=== PATIENT | female | born 1975 | race Caucasian/White ===

== ENCOUNTER 2018-08-22 16:40 | Outpatient (CLI) | payer OTHER, SELFPAY ==
[2018-08-22 23:31] LABS: TSH (W/Ref FT4) 1.43 uIU/mL (0.358-3.74)
[2018-08-24 09:20] LABS: Hepatitis C Ab w Rflx HCV PCR Negative (NEGAT)
[2018-08-24 10:13] LABS: HIV-1/2 Ag & Ab Screen Negative (NEGAT)
[2018-08-24 10:30] LABS: Prolactin 8.8 ng/ml
== END 2018-08-22 17:00 ==
PROVIDERS: PCP Family Medicine; Visit Provider Obstetrics & Gynecology
DX: N94.10 Unspecified dyspareunia (principal); Z11.3 Encounter for screening for infections with a predominantly sexual mode of transmission; Z11.4 Encounter for screening for human immunodeficiency virus [HIV]; Z11.59 Encounter for screening for other viral diseases; N64.52 Nipple discharge
CPT/HCPCS: 36415; 86803; 87389; 84146; 84443

== ENCOUNTER 2018-08-22 16:46 | Outpatient (REF) | payer OTHER, SELFPAY ==
--- NOTE | 2018-08-22 16:25 | PAPFT_PTH ---
PATIENT: Alanna White LOC: [facility] U#:[id number] AGE/SX: 42/F ROOM: RE08/22/[address]: Ivan Doss MD : 1975 BED: DIS: 08/22/2018 SPEC #: [id number] RECD: 08/22/18 18:06 STATUS: YAMILA REKain #: [id number] MEHUL: 08/22/18 16:[address]: Ivan Doss DEPT: [facility] Cytology RECD BY: Kate Carver ENTERED: 08/22/18 18:06 SP TYPE: PAPFT OTHR DR: Betsy Thayer V Tissues: 1 - CX/ENDOCX FOR PAP SMEARS Procedures: PAP THIN PREP/UVM Screening Comments: [id number] (UNSATISFACTORY FOR EVALUATON)
[2018-08-24 14:48] LABS: Chlamydia Result Negative; GC Result Negative; Specimen Description CERVIX
== END 2018-08-22 17:06 ==
LOC: LBN 16:46
PROVIDERS: PCP Family Medicine; Visit Provider Obstetrics & Gynecology
DX: Z12.4 Encounter for screening for malignant neoplasm of cervix (principal); Z11.51 Encounter for screening for human papillomavirus (HPV); Z11.3 Encounter for screening for infections with a predominantly sexual mode of transmission; N94.19 Other specified dyspareunia
CPT/HCPCS: 87491; 87591; 88142; 87624

== ENCOUNTER 2018-12-18 13:07 | Outpatient (REF) | payer OTHER, SELFPAY ==
[2018-12-18 21:56] LABS: Abs Immature Grans 0.01 k/cumm (0.0-0.09); Absolute Basophil Count 0.03 k/cumm (0.0-0.2); Absolute Eosinophil Count 0.09 k/cumm (0.0-0.7); Absolute Lymphocyte Count 1.07 k/cumm (1.2-3.4); Absolute Monocyte Count 0.51 k/cumm (0.11-0.7); Absolute Neutrophil Count 3.92 k/cumm (1.2-6.7); Basophils % 0.5; Eosinophils % 1.6; HCT 41.2 % (36.0-46.0); HGB 14.1 g/dL (12.0-15.5); Immature Grans % 0.2; Mean Corp. HGB Concentration 34.2 g/dL (32.0-36.0); Mean Corpuscular Volume 90.5 fL (80-95); Mean Platelet Volume 9.5 fL (8.0-11.0); Monocytes % 9.1; Neutrophils % 69.6; Platelet Count 276 x1000/uL (130-400); RBC 4.55 m/cumm (4.00-5.20); RBC Distribution Width 13.2 % (11.7-14.6); White Blood Cell Count 5.63 k/cumm (4.4-10.8)
[2018-12-18 22:20] LABS: ALT 20 U/L (12-78); AST 13 U/L (15-37); Albumin 3.5 g/dL (3.4-5.0); Alkaline Phosphatase 86 U/L (46-116); Anion Gap 9.4 mmol/L (3-11); BUN 10 mg/dL (7-18); Bilirubin, Total 0.6 mg/dL (0.2-1.0); CO2 26.6 mmol/L (21.0-32.0); CREATININE 0.68 mg/dL (0.55-1.02); Calcium 8.6 mg/dL (8.5-10.1); Chloride 105 mmol/L (98-107); Cholesterol 162 mg/dL (50-200); Glucose 84 mg/dL (70-100); HDL Cholesterol 68 mg/dL (40-60); LDL CHOLESTEROL 83 mg/dL (<100); Potassium 4.3 mmol/L (3.5-5.1); Sodium 141 mmol/L (136-145); TSH (W/Ref FT4) 1.83 uIU/mL (0.358-3.74); Total Protein 6.9 g/dL (6.4-8.2); Triglyceride 56 mg/dL (30-150)
== END 2018-12-18 13:27 ==
LOC: NCHCN 13:07
PROVIDERS: PCP Family Medicine; Visit Provider Physician Assistant Medical
DX: R07.9 Chest pain, unspecified (principal); R00.2 Palpitations
CPT/HCPCS: 80053; 80061; 83721; 84443; 85025

== ENCOUNTER 2019-12-03 15:29 | Outpatient (REF) | payer OTHER, SELFPAY ==
[2019-12-05 09:48] LABS: Hepatitis C Ab w Rflx HCV PCR Negative (Negative)
[2019-12-05 09:49] LABS: HIV-1/2 Ag & Ab Screen Negative (Negative)
[2019-12-05 10:30] LABS: Syphilis Serology (RPR) Negative (Negative)
[2019-12-05 13:36] LABS: GC Result Negative (Negative)
[2019-12-05 15:47] LABS: Chlamydia Result Positive (Negative)
== END 2019-12-03 15:49 ==
LOC: NCHCN 15:29
PROVIDERS: PCP Family Medicine; Visit Provider Physician Assistant Medical
DX: N76.0 Acute vaginitis (principal); Z11.59 Encounter for screening for other viral diseases; Z11.4 Encounter for screening for human immunodeficiency virus [HIV]
CPT/HCPCS: 86803; 87389; 87491; 87591; 86592; 87480; 87510; 87660

== ENCOUNTER 2020-08-20 19:09 | Outpatient (REF) | payer OTHER, SELFPAY ==
[2020-08-20 20:50] LABS: Abs Immature Grans 0.01 10^3/uL (0.0-0.06); Absolute Basophil Count 0.03 10^3/uL (0.0-0.2); Absolute Eosinophil Count 0.07 10^3/uL (0.0-0.7); Absolute Lymphocyte Count 1.22 10^3/uL (1.2-3.4); Absolute Monocyte Count 0.47 10^3/uL (0.1-0.8); Absolute Neutrophil Count 3.68 10^3/uL (1.2-6.7); Basophils % 0.5; Eosinophils % 1.3; HCT 43.2 % (36.0-46.0); HGB 14.2 g/dL (11.2-15.7); Immature Grans % 0.2; Lymphocytes % 22.3; MCH 28.9 pg (27.0-33.0); MCHC 32.9 % (32.0-36.0); MPV 9.3 fL (8.0-11.0); Monocytes % 8.6; Neutrophils % 67.1; Nucleated RBC 0 %; Platelet Count 304 10^3/uL (130-400); RBC 4.91 10^6/uL (3.93-5.22); RDW 13.2 % (11.7-14.6); RDW-SD 42.6 fL; WBC 5.48 10^3/uL (4.4-10.8)
[2020-08-20 21:10] LABS: Iron 39 ug/dL (50-170); Total Iron Binding Capacity 377 ug/dL (250-450); Transferrin Sat 10 % (15-50)
[2020-08-20 21:37] LABS: ALT 25 U/L (14-59); AST 15 U/L (15-37); Albumin 3.6 g/dL (3.4-5.0); Alkaline Phosphatase 105 U/L (46-116); Anion Gap 8.6 mmol/L (3-11); BUN 18 mg/dL (7-18); Bilirubin, Total 0.3 mg/dL (0.2-1.0); CO2 25.4 mmol/L (21.0-32.0); CREATININE 0.67 mg/dL (0.55-1.02); Calcium 8.2 mg/dL (8.5-10.1); Chloride 104 mmol/L (98-107); Ferritin 9 ng/mL (8-252); Folate 16.6 ng/mL (8.6-20.0); Glucose 80 mg/dL (74-106); Potassium 4.3 mmol/L (3.5-5.1); Sodium 138 mmol/L (136-145); Vitamin B12 284 pg/mL (193-986)
[2020-08-21 05:05] LABS: Vitamin D 25 Total 49.9 ng/ml (30-100)
[2020-08-22 10:52] LABS: Parathyroid Hormone,Intact 63 pg/mL (19-88)
[2020-08-26 07:50] LABS: Thiamine (Vitamin B1), WB 99 nmol/L (70-180)
== END 2020-08-20 19:29 ==
LOC: NCHCN 19:09
PROVIDERS: PCP Family Medicine; Visit Provider Physician Assistant Medical
DX: R10.11 Right upper quadrant pain (principal); R30.0 Dysuria; K21.9 Gastro-esophageal reflux disease without esophagitis; Z98.84 Bariatric surgery status
CPT/HCPCS: 80053; 82306; 82607; 82728; 82746; 83540; 83550; 83970; 84425; 85025

== ENCOUNTER 2021-03-19 17:49 | Outpatient (REF) | payer OTHER, SELFPAY ==
[2021-03-23 15:05] LABS: Chlamydia Result Negative (Negative); GC Result Negative (Negative)
== END 2021-03-19 17:50 | disposition home or self-care (01) ==
LOC: NCHCN 17:49
PROVIDERS: PCP Family Medicine; Visit Provider Physician Assistant Medical
DX: N89.8 Other specified noninflammatory disorders of vagina (principal); R82.998 Other abnormal findings in urine; Z11.3 Encounter for screening for infections with a predominantly sexual mode of transmission
CPT/HCPCS: 87491; 87591; 87086; 87480; 87510; 87660

== ENCOUNTER 2021-08-06 18:11 | Outpatient (REF) | payer OTHER, SELFPAY ==
[2021-08-08 12:56] LABS: COVID-19 RT-PCR UVMMC Result Positive (Negative)
== END 2021-08-06 18:12 | disposition home or self-care (01) ==
LOC: LBN 18:11
PROVIDERS: PCP Family Medicine; Visit Provider Physician Assistant Medical
DX: Z20.822 Contact with and (suspected) exposure to COVID-19 (principal); J06.9 Acute upper respiratory infection, unspecified
CPT/HCPCS: U0003

== ENCOUNTER 2021-08-11 03:16 | Outpatient (CLI) | payer OTHER, SELFPAY ==
[2021-08-11 07:25] VITALS: BP 100/67; PULSE 72; RESP 16; TEMP 36.8; O2SAT 98
[2021-08-11 07:36] VITALS: BP 100/67; PULSE 72; RESP 16; TEMP 36.8; O2SAT 98
[2021-08-11] MEDS: Normal Saline 500 ML 30 ML IV (08:00)
[2021-08-11 08:05] VITALS: BP 91/57; PULSE 70; TEMP 36.9; O2SAT 98
[2021-08-11 08:35] VITALS: BP 105/71; PULSE 65; RESP 16; TEMP 36.7; O2SAT 98
[2021-08-11] MEDS: Normal Saline Flush 10 ML SYR IVP (09:04)
[2021-08-11 09:07] VITALS: BP 103/70; PULSE 64; RESP 19; TEMP 36.7; O2SAT 99
[2021-08-11 09:35] VITALS: BP 97/64; PULSE 68; RESP 18; TEMP 36.7; O2SAT 99
== END 2021-08-11 03:17 | disposition home or self-care (01) ==
PROVIDERS: PCP Family Medicine; Visit Provider Family Medicine
DX: U07.1 COVID-19 (principal)
CPT/HCPCS: 96365

== ENCOUNTER 2022-09-13 15:40 | Outpatient (REF) | payer SELFPAY ==
[2022-09-15 11:28] LABS: COVID-19 RT-PCR UVMMC Result Negative (Negative)
== END 2022-09-13 15:41 | disposition home or self-care (01) ==
LOC: NCHCN 15:40
PROVIDERS: PCP Family Medicine; Visit Provider Physician Assistant Medical
DX: J02.9 Acute pharyngitis, unspecified (principal); Z20.822 Contact with and (suspected) exposure to COVID-19
CPT/HCPCS: U0003; 87081

== ENCOUNTER 2022-12-10 18:09 | Outpatient (REF) | payer OTHER, SELFPAY ==
[2022-12-12 12:21] LABS: COVID-19 RT-PCR UVMMC Result Negative (Negative)
== END 2022-12-10 18:10 | disposition home or self-care (01) ==
LOC: LBN 18:09
PROVIDERS: PCP Family Medicine; Visit Provider Physician Assistant Medical
DX: Z20.822 Contact with and (suspected) exposure to COVID-19 (principal); J02.9 Acute pharyngitis, unspecified
CPT/HCPCS: U0003; 87081

== ENCOUNTER 2023-03-04 15:08 | Outpatient (REF) | payer OTHER, SELFPAY ==
[2023-03-04 19:12] LABS: HCT 38.5 % (36.0-46.0); HGB 12.9 g/dL (11.2-15.7); MCH 28.8 pg (27.0-33.0); MCHC 33.5 % (32.0-36.0); MCV 86 fL (80-95); Platelet Count 317 10^3/uL (130-400); RBC 4.48 10^6/uL (3.93-5.22); RDW 13.6 % (11.7-14.6); RDW-SD 42.4 fL; WBC 6.72 10^3/uL (4.4-10.8)
[2023-03-04 19:38] LABS: BUN 15 mg/dL (7-18); CREATININE 0.7 mg/dL (0.55-1.02); Calcium 8.9 mg/dL (8.5-10.1); Chloride 104 mmol/L (98-107); Estimated GFR 107.95 (mL/min/1.73m2); Ferritin 15 ng/mL (8-252); Glucose 72 mg/dL (74-106); Potassium 3.6 mmol/L (3.5-5.1); Sodium 140 mmol/L (136-145)
== END 2023-03-04 15:09 | disposition home or self-care (01) ==
LOC: NCHCN 15:08
PROVIDERS: PCP Family Medicine; Visit Provider Physician Assistant Medical
DX: R25.2 Cramp and spasm (principal); Z86.39 Personal history of other endocrine, nutritional and metabolic disease
CPT/HCPCS: 80048; 85027; 82728; 83735

== ENCOUNTER 2023-03-25 00:33 | Outpatient (CLI) | payer OTHER, SELFPAY ==
--- NOTE | 2023-03-25 | DI.MAMMO_ITS ---
Exam(s) MAMMO SCREENING EXAM: MAMMO SCREENING CLINICAL HISTORY: SCREENING FOR BREAST CANCER Z12.31 TECHNIQUE: Mammograms were interpreted according to the usual protocol including computer analysis w [employer] CAD system, tomosynthesis and C-view imaging. COMPARISON: 2012 FINDINGS: The breasts are composed of scattered fibroglandular densities, Breast Density category B. No suspicious masses or suspicious microcalcifications are seen. No skin thickening or abnormal axillary lymph nodes are seen. There has been significant decrease in breast size and increase in breast density related to signifi cant interval weight loss. IMPRESSION: BI-RADS Category 1, Negative mammogram Yearly screening mammography is recommended. Breast Density - Category B, scattered fibroglandular densities. A negative radiographic report should not delay biopsy if a dominant or clinically suspicious mass is present. Up to ten percent of cancers are not identified on mammography. A negative report may reinforce clinical impression. Adenosis and dense breasts may obscure an underlying neoplasm. False positive reports average 6 to 10%. Patient will receive a letter notifying them of these results.
== END 2023-03-25 00:53 ==
PROVIDERS: PCP Family Medicine; Visit Provider Physician Assistant Medical
DX: Z12.31 Encounter for screening mammogram for malignant neoplasm of breast (principal)
CPT/HCPCS: 77063; 77067

== ENCOUNTER 2023-09-23 10:05 | Day surgery (SDC) | payer OTHER, SELFPAY ==
--- NOTE | 2023-09-22 16:23 | PDOC.DSDIS_ITS ---
Date of service: 09/23/23 Time of Service: 12:19 Discharge Plan Disposition Patient Disposition: Home Condition: Good Discharge Details Reason For Visit: colon scope Attending Provider: Michelle Cobb Primary Care Provider: Betsy Thayer V Home Meds and New Rx's Prescriptions: Continued epinephrine 0.3 MG/0.3 ML auto-injector 0.3 mg IM PRN Patient Comments: 06/03/14- Pt states she has not had to use. multivitamin [Daily Multi-Vitamin] 1 EACH tablet 1 ea PO DAILY fexofenadine [Mona Allergy] 60 MG tablet 60 mg PO BID fluticasone propionate [Flonase Allergy Relief] 9.9 ML spray,suspension 9.9 ml NS PRN ferrous sulfate 325 mg (65 mg iron) tablet,delayed release (DR/EC) 325 mg PO BID omeprazole 10 mg capsule,delayed release(DR/EC) 10 mg PO DAILY potassium chloride 10 mEq tablet extended release 10 meq PO DAILY magnesium 200 mg tablet 200 mg PO DAILY VITAMIN d3 25 mcg 1 tab PO DAILY mecobalamin (vitamin B12) 500 mcg tablet,chewable 500 mcg PO DAILY hydrocortisone 2.5 % cream 1 applic topical BID PRN prednisone 10 mg tablet 10 mg PO DIRECTED Patient Comments: TAKE 4 TABLETS BY MOUTH EVERY DAY X 2 DAYS THEN 3 TABLETS X 2 DAYS THEN 2 TABLETS X 2 DAYS THEN 1 TABLET X 2 DAYS THEN STOP Discontinued bisacodyl [Dulcolax (bisacodyl)] 5 mg tablet,delayed release (DR/EC) 5 mg PO ONCE Qty: 4 0RF Rx Instructions: Take per colonoscopy instructions provided by ordering providers office polyethylene glycol 3350 17 gram/dose powder 17 g PO ONCE Qty: 238 0RF Rx Instructions: Take per colonoscopy instructions provided by ordering providers office Discharge Instructions Additional Instructions: DSU Colonoscopy Post- Op Instructions Instructions for Everyone who is given Anesthesia: For your safety, please do the following for the next twenty-four (24) hours: *Do Not operate a motor vehicle (car, truck, motorcycle, etc.) *Do Not drink alcoholic beverages or use any recreational drugs for the first 24 hours or while taking pain medications. The medications in your body may have a reaction that can be dangerous. *Do Not make any important decisions or sign any important papers. Findings: Diverticula-Ensure you are moving your bowels on a regular basis and you are not straining to go to the bathroom. If you find you having problems with constipation or straining, then it is recommended you start a fiber product such as Metamucil Follow up: Repeat in 10 years time. 1. No lifting over 20 pounds or strenuous activity for the first 24 hours after your procedure. After 24 hours there are no restrictions on your activity but you may feel fatigued for a few days. 2. After you arrive home you may have a light meal and return to your normal diet as you can tolerate it without feeling sick to your stomach. 3. You may have a bloated, gaseous feeling in your belly (abdomen) after a colonoscopy. Passing gas and belching will help. Walking or lying down on your left side with your knees flexed may relieve the discomfort. Call the office at [phone] (Office) or [phone] (Hospital) right away if you notice any of the following: a.Vomiting of blood or ?coffee ground stools?. b.Rectal bleeding 1Tbsp, blood clots or continuous bleeding. c.Severe belly (abdominal) pain. d.A hard distended belly (abdomen) and an inability to pass gas. 4. Please don?t expect to have a normal BM (bowel movement) for 2-3 days after your procedure. 5. If there are questions regarding the findings of your procedure, please contact your doctor 6. If you are unable to contact your doctor with a problem, contact the hospital at [phone]. 7. Continue all your regular medications unless directed otherwise. I understand the above instructions and have no questions. Signature of Patient or Adult Escort Name of Responsible Adult Escort Signature of Nurse Date/Time -Patient was given a handout on diverticular disease Stand Alone Forms: Anesthesia Discharge InstMary Alice, Jessy Anthony (DSU) Activity:: see above Diet:: see above Discharge Orders Discharge Orders: Discharge Order (Routine); Ordered 09/23/23 Ordered By: Michelle Cobb DS: Diagnosis Discharge Diagnosis (1) Morbid obesity: Status: Acute (2) Lactose intolerance: Status: Acute (3) Gastroesophageal reflux disease: Status: Acute (4) Gastroesophageal reflux disease: (5) Adult body mass index greater than 30: (6) Screening for malignant neoplasm of colon performed: Status: Acute Asessment and Plan: The patient is seen and examined after their colonoscopy.? The patient has been able to pass gas.? They are not having abdominal pain.? They have been able to tolerate liquids and a snack.? They do not have any nausea or vomiting.? They are not having any chest pain or shortness of breath.??? They are not having any rectal bleeding. Their vital signs have been stable-see nursing notes. We discussed findings during their colonoscopy, and any biopsies that were done/polyps that were removed. The patient will be sent a letter with any biopsy results, and when to repeat the colonoscopy.-see discharge instructions. Patient was given explicit instructions to follow-up regarding colonoscopy-refer to discharge instructions.? We reviewed resumption of medications. Patient verbalized understanding and discharged in stable and satisfactory condition- See nursing notes. (7) Diverticula of colon: Status: Acute
--- NOTE | 2023-09-22 16:23 | W.COLOREPORT ---
Date of service: 09/23/23 Time of Service: 12:43 Colonoscopy Report Date of procedure: 09/23/23 Pre-op diagnosis general: CRC screening Post-op diagnosis procedure note: other (diverticula ) Surgeon: Michelle Cobb Anesthesia Type: General:No Airway Estimated blood loss (mL): 0 Pathology: none sent Complications: None Disposition: no change Prep: Miralax/Dulcolax Retraction Time: 9 Procedure Description: After informed consent was obtained the patient was taken to the procedure room and placed in a left decubitous position. Monitors were applied and a time out was done. The patients name, date of , procedure, allergies to medications and metal in their body was reviewed. The patient was then sedated. Once sedated and comfortable a rectal exam was done. External exam was normal. Internal exam revealed a normal sphincter tone and no palpable masses. The scope was then introduced and retrofelexed. No internal hemorrhoids were identified. The scope was then advanced to the cecum without difficulty. The TI and appendiceal orifice were identified. The prep was BBPS 3 in all segments for total of 9. The scope was then slowly retracted over 11 minutes back into the rectum. There are no polyps or AVMs. She does have diverticula that do carry all the way over to the transverse colon. There is no signs of active bleeding or infection.. The scope was removed and the patient was woken up and taken back to Same day surgery in stable condition. The patient tolerated the procedure well and there were no immediate complications. Follow up: The patient should follow up in 10 years unless they develop changes in bowel habits or other new gastrointestinal complaints.
[2023-09-23 10:22] VITALS: BP 110/75; PULSE 78; RESP 16; TEMP 37; O2SAT 98
--- NOTE | 2023-09-23 10:39 | ANES.PREOP_ITS ---
General Info Date of Service Date Performed: 09/23/23 Height: 5 ft 1 in Weight: 91.7 kg Body Mass Index (BMI): 38.2 Surgical Procedure: Operation Date: 09/23/23 11:20 Proposed Procedure Side Surgeon jenn Cobb, DO Meds Allergies and Home Medications Allergies Allergy/AdvReac Type Severity Reaction Status Date / Time venom-honey bee Allergy ANAPHYLAXIS Unverified 09/22/23 14:24 [bee venom (honey bee)] codeine AdvReac SHAKY Unverified 09/22/23 14:24 loratadine [From Claritin] AdvReac SHAKY Unverified 09/22/23 14:24 Home Medication Medication Instructions Recorded epinephrine 0.3 mg/0.3 mL 0.3 mg IM PRN 02/08/14 injection, auto-injector multivitamin (Daily Multi-Vitamin 1 ea PO DAILY 10/30/14 tablet) fexofenadine 60 mg tablet (Mona 60 mg PO BID 06/13/18 Allergy) fluticasone propionate 50 9.9 ml NS PRN 06/13/18 mcg/actuation nasal spray,suspension (Flonase Allergy Relief) VITAMIN d3 1 tab PO DAILY 09/08/23 ferrous sulfate 325 mg (65 mg 325 mg PO BID 09/08/23 iron) tablet,delayed release hydrocortisone 2.5 % topical cream 1 applic topical BID PRN 09/08/23 magnesium 200 mg tablet 200 mg PO DAILY 09/08/23 mecobalamin (vitamin B12) 500 mcg 500 mcg PO DAILY 09/08/23 chewable tablet omeprazole 10 mg capsule,delayed 10 mg PO DAILY 09/08/23 release potassium chloride 10 mEq 10 meq PO DAILY 09/08/23 tablet,extended release prednisone 10 mg tablet 10 mg PO DIRECTED 09/22/23 Current Visit Medications: Current Medications Generic Name Dose Route Start Last Admin Trade Name Freq PRN Reason Stop Dose Admin Hyoscyamine Sulfate 0.125 mg 09/23/23 11:36 Hyoscyamine 0.125 Mg Sl/Oral/Chew SL 10/23/23 11:35 DIRECTED PRN Ringer's Solution 1,000 mls @ 80 mls/hr 09/23/23 06:00 IV 10/22/23 23:59 INFUSION SERGIO IV Miscellaneous Supplies 1 each 09/23/23 06:00 Iv Access IV 10/22/23 23:59 DIRECTED SERGIO Ondansetron HCl 4 mg 09/23/23 11:36 Ondansetron 4 Mg/2 Ml Vial IVP 10/23/23 11:35 Q4H PRN PRN Nausea / Vomiting Sodium Chloride 0 ml 09/23/23 06:00 Normal Saline Flush 10 Ml Syr IV 10/22/23 23:59 PRN PRN Sodium Chloride 0 ml 09/23/23 06:00 Normal Saline 10 Ml Vial IJ 10/22/23 23:59 DIRECTED PRN Sterile Water 0 ml 09/23/23 06:00 Water,Injection,Sterile 10 Ml Vial IJ 10/22/23 23:59 DIRECTED PRN PFSH Active Problems Active Problems: Problem Status Onset Code Screening for malignant neoplasm of colon performed Z12.11 Morbid obesity 09/17/13 E66.01 Lactose intolerance 06/13/18 E73.9 Gastroesophageal reflux disease 10/15/13 K21.9 Galactorrhea not associated with childbirth 10/15/13 N64.3 Condyloma acuminatum 11/04/14 A63.0 Anxiety and depression 06/13/18 F41.9, F32.9 Medical History Medical History (Updated 09/22/23 @ 16:24 by Michelle Cobb DO) Neuritis of upper extremity Menorrhagia Abnormal anal Papanicolaou smear HGSIL Gastroesophageal reflux disease 11/2012 s/p endoscopy. Neg findings. Meds for GERD not effective per pt report Adult body mass index greater than 30 09/17/13 BMI >50 ( error on wt obtained and recorded on vitals sheet. [place] [facility] [place] 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 PCP w/u neg for thyroid or prolactin issues. 10/15/13 Diagnostic mammogram ordered. Surgical History Surgical History H/O bariatric surgery Ligation of fallopian tube (~10/2013) laparoscopy - aoc EGD - MAC (10/15/13) 11/[address] Stuart Tobacco Smoking/Tobacco Use Status: Never Alcohol Alcohol Intake: current Alcohol intake frequency: a few times a month Substance Use Substance use: Never Substance use type: does not use Prental History History 3 Para Hx # Term Pregnancies 2 Multiple births Hx # Pregnancies Ectopic pregnancies AB induced Hx Number of Living Children AB spontaneous Vital Signs and Lab Results Vital Signs Most Recent Vital Signs in EMR: Most Recent Vital Signs Temp Pulse Resp BP Pulse Ox 37.0 C 78 16 110/75 98 09/23/23 10:22 09/23/23 10:22 09/23/23 10:22 09/23/23 10:22 09/23/23 10:22 Lab Results Blood Type / Crossmatch: No Data to Display Complete Blood Count: No Data to Display Complete Metabolic Panel: No Data to Display Liver Function Panel: No Data to Display Coagulation Panel: No Data to Display Cardiac Panel: No Data to Display Arterial Blood Gas: No Data to Display Venous Blood Gas: No Data to Display Pancreas Panel: No Data to Display Thyroid Panel: No Data to Display Infectious Disease: No Data to Display Blood Cultures: No Data to Display Toxicology Panel: No Data to Display Panel: No Data to Display Anesthesia Assessment and Plan Anesthesia History Personal History: No History of Anesthesia Complications Family History: No Family History of Anesthesia Complications Exercise Tolerance Exercise Tolerance: Metabolic Equivalents>4 Pertinent Negatives Pertinent Negatives: No Symptoms of GERD, No Major Cardiovascular Symptoms or Complaints, No Major Pulmonary Symptoms or Complaints and No History of CVA/TIA Cardiac & Pulmonary Exam Cardiac Exam: Normal S1/S2 Heart Sounds Pulmonary Exam: Clear Bilateral Breath Sounds Implantable Cardiac Device Does patient have a Pacemaker or an ICD?: No Airway Exam Known Difficult Airway: No Mallampati Class: 3 Mouth Opening: Narrow (< 3cm) (Significantly limited due to active TMJ. Just finished prednisone today for TMJ swelling.) Thyromental Distance: Greater than 3 cm Neck Range of Motion: Full ROM Neck Circumference: Normal Teeth Condition: Normal Dentition and Generalized Poor Dentition ASA Classification ASA Score: ASA 2 Emergency Case?: No NPO Status NPO Status: NPO Clears >2 hours, Solids >8 hours Status Status: Negative HCG Anesthesia Plan Resuscitation Status: Full Code Anesthesia Technique: General Anesthesia Airway Planned: Natural Airway Monitors Used: Standard Monitors
[2023-09-23] MEDS: Lactated Ringers 1,000 ML 80 ML IV (10:45)
[2023-09-23 10:59] VITALS: BMI 38.2
[2023-09-23 11:30] VITALS: BP 100/68; PULSE 68; RESP 16; TEMP 36.5; O2SAT 97
[2023-09-23 12:00] VITALS: BP 100/74; PULSE 56; RESP 16; TEMP 36.6; O2SAT 97
--- NOTE | 2023-09-23 13:21 | ANES.POST_ITS ---
Postoperative Evaluation Date, Time and Location Date Performed: 09/23/23 Time Performed: 12:05 Patient Location: Day Surgery Unit Vital Signs Most Recent Imported Vital Signs: Most Recent Vital Signs Temp Pulse Resp BP Pulse Ox 36.6 C 56 L 16 100/74 97 09/23/23 12:00 09/23/23 12:00 09/23/23 12:00 09/23/23 12:00 09/23/23 12:00 Pain Score Most Recent Pain Score: Most Recent Pain Score Pain Level 0 09/23/23 12:00 Assessment Mental Status: Awake (Alert & Oriented to Patient Baseline) Airway and Respiratory Function: Patent airway with normal (patient baseline) respiratory exam Cardiovascular Function: Hemodynamically Stable Hydration Status: Adequately Hydrated Nausea & Vomiting: No Nausea or Vomiting Pain: Pt. Denies Any Pain Peripheral Nerve Block: Patient did not receive a nerve block Teaching Patient Teaching: Advised to seek followup for the following concerns (See e xplanation) Concerns: Other (GERD. Patient with acid reflux during case today: does report acid sometimes does wake her up at night. No aspiration today: did recommend she follow up with her PCP as she is currently unmedicated. )
--- NOTE | 2023-09-23 13:29 | W.ANESPOSTOP ---
Postoperative Evaluation Date, Time and Location Date Performed: 09/23/23 Time Performed: 12:00 Patient Location: Day Surgery Unit Vital Signs Most Recent Imported Vital Signs: Most Recent Vital Signs Temp Pulse Resp BP Pulse Ox 36.6 C 56 L 16 100/74 97 09/23/23 12:00 09/23/23 12:00 09/23/23 12:00 09/23/23 12:00 09/23/23 12:00 Most Recent Vital Signs Temp Pulse Resp BP Pulse Ox 36.6 C 56 L 16 100/74 97 09/23/23 12:00 09/23/23 12:00 09/23/23 12:00 09/23/23 12:00 09/23/23 12:00 Pain Score Most Recent Pain Score: Most Recent Pain Score Pain Level 0 09/23/23 12:00 Assessment Mental Status: Awake (Alert & Oriented to Patient Baseline) Airway and Respiratory Function: Patent airway with normal (patient baseline) respiratory exam Cardiovascular Function: Hemodynamically Stable Hydration Status: Adequately Hydrated Nausea & Vomiting: No Nausea or Vomiting Pain: Pt. Denies Any Pain Peripheral Nerve Block: Patient did not receive a nerve block
== END 2023-09-23 12:30 | disposition home or self-care (01) ==
LOC: SUR 10:05
PROVIDERS: PCP Family Medicine; Visit Provider Surgery
PROC: 0DJD8ZZ Inspection of Lower Intestinal Tract, Via Natural or Artificial Opening Endoscopic (ICD-10-PCS; CPT 45378; principal; 2023-09-23 11:15)
DX: Z12.11 Encounter for screening for malignant neoplasm of colon; K57.30 Diverticulosis of large intestine without perforation or abscess without bleeding
CPT/HCPCS: 45378; 81025

== ENCOUNTER 2024-02-10 15:13 | Outpatient (REF) | payer OTHER, SELFPAY ==
--- NOTE | 2024-02-10 15:00 | PAPFT_PTH ---
PATIENT: Alanna White LOC: [facility]#:[id number] AGE/SX: 48/F ROOM: RE02/10/[address]: Ajith Sahni : 1975 BED: DIS: 02/10/2024 SPEC #: [id number] RECD: 02/10/24 18:40 STATUS: YAMILA REQ #: [id number] MEHUL: 02/10/24 15:[address]: Ajith Sahni DEPT: [facility] Cytology RECD BY: Kate Carver ENTERED: 02/10/24 18:40 SP TYPE: PAPFT OTHR DR: Betsy Thayer V Tissues: 1 - CX/ENDOCX FOR PAP SMEARS Procedures: PAP THIN PREP/UVM Screening HPV DNA PROBE Comments: [id number]
[2024-02-10 19:35] LABS: Abs Immature Grans 0.02 10^3/uL (0.0-0.06); Absolute Basophil Count 0.03 10^3/uL (0.0-0.2); Absolute Eosinophil Count 0.09 10^3/uL (0.0-0.7); Absolute Lymphocyte Count 1.17 10^3/uL (1.2-3.4); Absolute Monocyte Count 0.52 10^3/uL (0.1-0.8); Absolute Neutrophil Count 4.79 10^3/uL (1.2-6.7); Basophils % 0.5; Eosinophils % 1.4; HCT 39.7 % (36.0-46.0); HGB 12.9 g/dL (11.2-15.7); Immature Grans % 0.3; Lymphocytes % 17.7; MCHC 32.5 % (32.0-36.0); MCV 86 fL (80-95); MPV 8.7 fL (8.0-11.0); Monocytes % 7.9; Neutrophils % 72.2; Platelet Count 317 10^3/uL (130-400); RBC 4.61 10^6/uL (3.93-5.22); RDW 14.1 % (11.7-14.6); RDW-SD 44.5 fL; WBC 6.62 10^3/uL (4.4-10.8)
[2024-02-10 19:53] LABS: Hemoglobin A1C 5.6 % (<5.7)
== END 2024-02-10 15:14 | disposition home or self-care (01) ==
LOC: NCHCN 15:13
PROVIDERS: PCP Family Medicine; Visit Provider Physician Assistant Medical
DX: Z00.00 Encounter for general adult medical examination without abnormal findings (principal); Z13.1 Encounter for screening for diabetes mellitus; Z13.0 Encounter for screening for diseases of the blood and blood-forming organs and certain disorders involving the immune mechanism; Z12.4 Encounter for screening for malignant neoplasm of cervix; Z11.51 Encounter for screening for human papillomavirus (HPV)
CPT/HCPCS: 80061; 88142; 83036; 85025; 87624

== ENCOUNTER → 2024-04-06 01:00 | Outpatient (CLI) | payer OTHER, SELFPAY ==
--- NOTE | 2024-04-06 08:04 | DI.MAMMO_ITS ---
Exam(s) MAMMO SCREENING EXAM: MAMMO SCREENING CLINICAL HISTORY: SCREENING, Z12.31 TECHNIQUE: Mammograms were interpreted according to the usual protocol including computer analysis w ith CAD system, tomosynthesis and C-view imaging. COMPARISON: DIAGNOSTIC BILAT MAMMO W/CAD from 10/24/2013 MG MAMMO SCREENING from 03/25/2023 FINDINGS: The breasts are composed of scattered fibroglandular densities, Breast Density category B. No suspicious masses or suspicious microcalcifications are seen. No skin thickening or abnormal axillary lymph nodes are seen. There has been no significant change from prior exams. IMPRESSION: BI-RADS Category 1, Negative mammogram Yearly screening mammography is recommended. Breast Density - Category B, scattered fibroglandular densities. A negative radiographic report should not delay biopsy if a dominant or clinically suspicious mass is present. Up to ten percent of cancers are not identified on mammography. A negative report may reinforce clinical impression. Adenosis and dense breasts may obscure an underlying neoplasm. False positive reports average 6 to 10%. Patient will receive a letter notifying them of these results.
== END ==
PROVIDERS: PCP Family Medicine; Visit Provider Physician Assistant Medical
DX: Z12.31 Encounter for screening mammogram for malignant neoplasm of breast (principal)
CPT/HCPCS: 77063; 77067

== ENCOUNTER 2024-05-16 22:28 | Outpatient (REF) | payer OTHER, SELFPAY ==
[2024-05-19 11:16] LABS: Bacterial Vaginosis (BV) Negative (Negative); Candida glabrata Negative (Negative); Candida species group Negative (Negative); Trichomonas vaginalis Negative (Negative)
[2024-05-19 14:50] LABS: HSV 1 DNA Result Negative (Negative); HSV 2 DNA Result Positive (Negative)
[2024-05-21 12:51] LABS: Chlamydia Result Negative (Negative); GC Result Negative (Negative)
== END 2024-05-16 22:29 | disposition home or self-care (01) ==
LOC: LBN 22:28
PROVIDERS: PCP Family Medicine; Visit Provider Physician Assistant Medical
DX: N89.8 Other specified noninflammatory disorders of vagina (principal); Z11.3 Encounter for screening for infections with a predominantly sexual mode of transmission
CPT/HCPCS: 81513; 87481; 87491; 87529; 87591; 87661

== ENCOUNTER 2024-05-30 20:29 | Outpatient (REF) | payer OTHER, SELFPAY ==
[2024-06-01 13:16] LABS: HIV-1/2 Ag & Ab Screen Negative (Negative)
[2024-06-01 13:19] LABS: Hepatitis C Ab w Rflx HCV PCR Negative (Negative); Syphilis Serology (RPR) Negative (Negative)
== END 2024-05-30 20:30 | disposition home or self-care (01) ==
LOC: NCHCN 20:29
PROVIDERS: PCP Family Medicine; Visit Provider Physician Assistant Medical
DX: Z11.3 Encounter for screening for infections with a predominantly sexual mode of transmission (principal); Z11.4 Encounter for screening for human immunodeficiency virus [HIV]; Z11.59 Encounter for screening for other viral diseases
CPT/HCPCS: 86803; 87389; 86592

== ENCOUNTER 2025-05-03 00:21 | Outpatient (CLI) | payer OTHER, SELFPAY ==
--- NOTE | 2025-05-03 | DI.MAMMO_ITS ---
Exam(s) MAMMO SCREENING EXAM: MAMMO SCREENING CLINICAL HISTORY: Screening, Z12.31 TECHNIQUE: Mammograms were interpreted according to the usual protocol including computer analysis with CAD system, tomosynthesis and C-view imaging. COMPARISON: 2022 and 2023 FINDINGS: The breasts are composed of scattered fibroglandular densities, Breast Density category B. No suspicious masses or suspicious microcalcifications are seen. No skin thickening or abnormal axillary lymph nodes are seen. There has been no significant change from prior exams. IMPRESSION: BI-RADS Category 1, Negative mammogram Yearly screening mammography is recommended. Breast Density - Category B - There are scattered areas of fibroglandular density. Breast density Category C or D implies that the patient has dense breast tissue. Dense breast tissue can make it harder to find cancer on a mammogram. Dense breast tissue is also associated with an increased risk of breast cancer. This information about the result of the mammogram report was provided to the patient to raise their awareness. Use this report when you speak with the patient about their risks for breast cancer, which includes their family history. At that time, you may recommend additional screening tests (Ultrasound or MRI) as these tests may add significant information. A negative radiographic report should not delay biopsy if a dominant or clinically suspicious mass is present. Up to ten percent of cancers are not identified on mammography. A negative report may reinforce clinical impression. Adenosis and dense breasts may obscure an underlying neoplasm. False positive reports average 6 to 10%. Patient will receive a letter notifying them of these results.
== END 2025-05-03 00:41 ==
LOC: DI 00:21
PROVIDERS: PCP Family Medicine; Visit Provider Physician Assistant Medical
DX: Z12.31 Encounter for screening mammogram for malignant neoplasm of breast (principal); R92.323 Mammographic fibroglandular density, bilateral breasts
CPT/HCPCS: 77063; 77067